=== PATIENT | male | born 1985 | race Caucasian/White ===

== ENCOUNTER 2017-10-28 13:35 | Emergency (ER) | payer SELFPAY ==
[~2017-10-28 13:35] MED LIST: BUPR1FIL7 PO; CEPH500C24 PO; CLON-327 PO; HYDR-4309 PO; LOR5/325 PO; SERT-181 PO
[2017-10-28] MEDS ORDERED: ASPI-1471 PO (13:51)
--- NOTE | 2017-10-28 13:57 | ER Report ---
History and Physical Time Seen By MD: 13:42 Hx. of Stated Complaint: PAIN IN CHEST BEEN GOING ON "FOR A WHILE", SOB HPI/ROS Chief concern: chest pain HPI: 32 year old male presents with concern of chest pain since 10AM. Reports pain radiates to left arm. States his heart is "beating hard", and is experiencing dizziness and shortness of breath. States he took 0.3 mg of clonidine, which he takes for hypertension, and his symptoms subsided somewhat. Reports chronic headaches. States he has been under increased stress due to his being in the NICU since . has been home for one month. Reports taking Zoloft for anxiety. Review of System General: Reports "clammy" hands and dizziness. Respiratory: Reports shortness of breath. CV: Reports chest pain radiating to left arm since 10AM. GI: Denies nausea, vomiting, abdominal pain. Allergies: Coded Allergies: No Known Drug Allergies (Unverified , 07/21/16) Home Meds Active Scripts Hydroxyzine Pamoate (VISTARIL) 25 Mg Capsule, 25 MG PO Q6H for Anxiety for 30 Days, #30 CAPSULE Prov:DERRICK ALBERT MATHEMATICAL STATISTICIAN 10/28/17 Reported Medications Aspirin (ASPIR 81) 81 Mg Tablet.dr, 81 MG PO QDAY, TAB 10/28/17 Clonidine Hcl (CLONIDINE HCL) 0.1 Mg Tablet, 0.5 TAB PO BID, TAB 04/13/17 Buprenorphine Hcl/Naloxone Hcl (SUBOXONE 8 MG-2 MG SL FILM) 1 Each Film, 1 FILM PO BID, #30 08/03/15 Discontinued Scripts Sertraline Hcl (SERTRALINE HCL) 100 Mg Tablet, 0.5-1 TAB PO QDAY, #30 TAB 1 Refill 0.5 tab daily x 7 days then increase to one tab daily thereafter Prov:DAGOBERTO RODRIGUEZ APRN MATHEMATICAL STATISTICIAN-C 04/13/17 Past Medical/Surgical History Reports history of anxiety, hyperthyroidism Reports history of IV drug use up until 3 years ago. Reviewed Nurses Notes: Yes Old Medical Records Reviewed: No Hx Smoking: Yes Smoking Status: Current: Every Day Smoker Exposure to Second Hand Smoke?: Yes Hx Substance Use Disorder: Yes (iv drug use history ) Hx Alcohol Use: No Family History of: HTN, Diabetes, Cardiac, DVT/PE Constitutional Vital Sign - Last 24 Hours 10/28/17 10/28/17 10/28/17 10/28/17 13:40 13:41 13:50 14:05 Temp 98.1 Pulse 108 100 87 Resp 16 16 14 B/P (MAP) 156/103 156/103 (120) Pulse Ox 97 95 96 O2 Delivery Room Air 10/28/17 10/28/17 10/28/17 10/28/17 14:20 14:35 14:42 14:50 Pulse 87 75 79 Resp 7 13 13 B/P (MAP) ???/??? (1665) Pulse Ox 95 95 92 10/28/17 10/28/17 10/28/17 10/28/17 15:05 15:20 15:25 15:40 Pulse 82 ? Resp 7 Pulse Ox 92 10/28/17 10/28/17 10/28/17 10/28/17 15:55 16:10 16:25 16:27 Pulse ? B/P (MAP) 105/65 (78) 10/28/17 10/28/17 10/28/17 16:40 16:55 17:10 Pulse 54 54 ??? Pulse Ox 91 96 Physical Exam Physical Exam General: Alert, articulate, answering questions with appropriate affect. HEENT: TMs pearly salvador and intact, no erythema to canal. No lymphadenopathy. Respiratory: Clear to auscultation bilaterally. Normal respiratory effort. CV: Regular rate and rhythm. GI: Normoactive bowel sounds all quadrants. No masses or tenderness to palpation. Scattered tympany/dullness to percussion. After obtaining a thorough HPI, ROS, and physical exam, the following differentials were considered but not limited to: WA, PE, uncontrolled hypertension, anxiety. Medical Decision Making Data Points Result Diagram: 10/28/17 1603 10/28/17 1603 Laboratory Hematology Test 10/28/17 16:03 Red Blood Count 5.09 M/uL (4.00-5.60) Mean Corpuscular Volume 88.1 fL (80.0-96.0) Mean Corpuscular Hemoglobin 31.3 pg (26.0-33.0) Mean Corpuscular Hemoglobin Concent 35.5 g/dL (32.0-36.0) Red Cell Distribution Width 12.2 % (11.5-14.5) Mean Platelet Volume 9.1 fL (7.2-11.1) Neutrophils (%) (Auto) 64.5 % (39.4-72.5) Lymphocytes (%) (Auto) 29.0 % (17.6-49.6) Monocytes (%) (Auto) 4.2 % (4.1-12.4) Eosinophils (%) (Auto) 1.4 % (0.4-6.7) Basophils (%) (Auto) 0.9 % (0.3-1.4) Nucleated RBC Relative Count (auto) 0.0 /100WBC Neutrophils # (Auto) 5.0 K/uL (2.0-7.4) Lymphocytes # (Auto) 2.3 K/uL (1.3-3.6) Monocytes # (Auto) 0.3 K/uL (0.3-1.0) Eosinophils # (Auto) 0.1 K/uL (0.0-0.5) Basophils # (Auto) 0.1 K/uL (0.0-0.1) Nucleated RBC Absolute Count (auto) 0.00 K/uL Sodium Level 140 mmol/L (137-145) Potassium Level 4.3 mmol/L (3.5-5.0) Chloride Level 102 mmol/L (98-107) Carbon Dioxide Level 26 mmol/L (22-30) Blood Urea Nitrogen 15 mg/dl (9-21) Creatinine 1.00 mg/dl (0.66-1.25) Glomerular Filtration Rate Calc > 60.0 Random Glucose 94 mg/dl (75-110) Calcium Level 9.6 mg/dl (8.4-10.2) Total Bilirubin 0.4 mg/dl (0.2-1.3) Aspartate Amino Transf (AST/SGOT) 19 U/L (0-35) Alanine Aminotransferase (ALT/SGPT) 31 U/L (0-56) Alkaline Phosphatase 72 U/L (0-126) Troponin I < 0.012 ng/ml Total Protein 7.4 gm/dl (6.3-8.2) Albumin 4.1 g/dl (3.5-5.0) Chemistry Test 10/28/17 16:03 White Blood Count 7.8 k/uL (4.5-11.0) Red Blood Count 5.09 M/uL (4.00-5.60) Hemoglobin 15.9 g/dL (14.0-18.0) Hematocrit 44.9 % (42.0-52.0) Mean Corpuscular Volume 88.1 fL (80.0-96.0) Mean Corpuscular Hemoglobin 31.3 pg (26.0-33.0) Mean Corpuscular Hemoglobin Concent 35.5 g/dL (32.0-36.0) Red Cell Distribution Width 12.2 % (11.5-14.5) Platelet Count 161 K/uL (150-450) Mean Platelet Volume 9.1 fL (7.2-11.1) Neutrophils (%) (Auto) 64.5 % (39.4-72.5) Lymphocytes (%) (Auto) 29.0 % (17.6-49.6) Monocytes (%) (Auto) 4.2 % (4.1-12.4) Eosinophils (%) (Auto) 1.4 % (0.4-6.7) Basophils (%) (Auto) 0.9 % (0.3-1.4) Nucleated RBC Relative Count (auto) 0.0 /100WBC Neutrophils # (Auto) 5.0 K/uL (2.0-7.4) Lymphocytes # (Auto) 2.3 K/uL (1.3-3.6) Monocytes # (Auto) 0.3 K/uL (0.3-1.0) Eosinophils # (Auto) 0.1 K/uL (0.0-0.5) Basophils # (Auto) 0.1 K/uL (0.0-0.1) Nucleated RBC Absolute Count (auto) 0.00 K/uL Glomerular Filtration Rate Calc > 60.0 Calcium Level 9.6 mg/dl (8.4-10.2) Total Bilirubin 0.4 mg/dl (0.2-1.3) Aspartate Amino Transf (AST/SGOT) 19 U/L (0-35) Alanine Aminotransferase (ALT/SGPT) 31 U/L (0-56) Alkaline Phosphatase 72 U/L (0-126) Troponin I < 0.012 ng/ml Total Protein 7.4 gm/dl (6.3-8.2) Albumin 4.1 g/dl (3.5-5.0) EKG/Imaging EKG Interpretation 12 lead EKG: Rhythm: normal sinus rhythm with a ventricular rate of 94 bpm Dike: normal QRS: normal ST segments: normal Imaging EXAMINATION: Chest 2 Views HISTORY: Chest pain. COMPARISON: None. FINDINGS: The lungs are clear. No focal consolidation or pleural fluid. No pneumothorax. Normal cardiomediastinal silhouette, with normal heart size and pulmonary vascularity. Visualized osseous structures are unremarkable. IMPRESSION: Negative chest. Report Dictated By: Alhaji Mclaughlin MD at 10/28/2017 3:25 PM Report E-Signed By: Alhaji Mclaughlin MD at 10/28/2017 3:26 PM ED Course/Re-evaluation ED Course Patient admitted to exam room. Thorough HPI and ROS obtained. Physical exam revealed lungs clear to auscultation bilaterally with normal respiratory effort. Regular heart rate and rhythm. Normoactive bowel sounds all quadrants. No masses or tenderness to palpation. Scattered tympany/dullness to percussion. After obtaining a thorough HPI, ROS, and physical exam, the following differentials were considered but not limited to: WA, PE, uncontrolled hypertension, anxiety. The following tests were completed: EKG, CMP, CBC, troponin, chest x-ray. 324 mg of aspirin adminstered to patient. EKG showed normal sinus rhythm. CBC showed no evidence of infection or hemodynamic instability. CMP showed no organ dysfunction or electrolyte imbalance. Troponin was negative. Chest X-ray FINDINGS: The lungs are clear. No focal consolidation or pleural fluid. No pneumothorax. Normal cardiomediastinal silhouette, with normal heart size and pulmonary vascularity. Visualized osseous structures are unremarkable. IMPRESSION: Negative chest. Findings were discussed with patient. Prescribed hydroxyzine for PRN relief of anxiety episodes. Recommended patient follow up with primary care provider. Return to ED if symptoms worsen. Patient verbalized understanding and agreed to plan. Decision to Disposition Date: Oct 28, 2017 Decision to Disposition Time: 17:12 Depart Departure Latest Vital Signs Vital Signs Date Time Temp Pulse Resp B/P (MAP) Pulse Ox O2 Delivery O2 Flow Rate FiO2 10/28/17 17:10 ??? 10/28/17 16:55 96 10/28/17 16:27 105/65 (78) 10/28/17 15:05 7 10/28/17 13:40 98.1 Room Air Impression: Primary Impression: Chest pain Additional Impression: Anxiety Condition: Improved Disposition: HOME OR SELF-CARE Referrals: DAGOBERTO RODRIGUEZ APRN-C (PCP) New Scripts Hydroxyzine Pamoate (VISTARIL) 25 Mg Capsule 25 MG PO Q6H for Anxiety for 30 Days, #30 CAPSULE Prov: DERRICK ALBERT 10/28/17 Patient Instructions: Anxiety (ED) Additional Instructions: Take hydroxyzine as needed for anxiety, up to four times a day. Follow up with primary care provider next week. Return to ED if symptoms worsen. Problem Qualifiers Primary Impression: Chest pain Chest pain type: other chest pain Qualified Codes: R07.89 - Other chest pain DERRICK ALBERT Oct 28, 2017 13:57
[2017-10-28] MEDS ORDERED: ASPIRIN 81 MG CHEW PO ONE (14:10)
--- NOTE | 2017-10-28 15:29 | EKG ---
FACILITY: [facility] - [place] PATIENT NAME: BALDEV INGRAM : [id number] MR: [id number] V: [id number] EXAM DATE: ORDERING PHYSICIAN: DERRICK ALBERT TECHNOLOGIST: ABDULAZIZ Test Reason : SOB Blood Pressure : / mmHG Vent. Rate : 094 BPM Atrial Rate : 094 BPM P-R Int : 154 ms QRS Dur : 096 ms QT Int : 344 ms P-R-T Axes : 078 075 046 degrees QTc Int : 430 ms Normal sinus rhythm Normal ECG No previous ECGs available Confirmed by DAPHNIE BROTHERS ([id number]) on 10/28/2017 10:00:26 PM Referred By: BETY Confirmed By:DAPHNIE BROTHERS
--- NOTE | 2017-10-28 15:31 | RADIOLOGY IMAGING REPORT ---
FACILITY: [facility] PATIENT NAME: Art Brwon : 1985 MR: [id number] V: [id number] EXAM DATE: ORDERING PHYSICIAN: DERRICK ALBERT TECHNOLOGIST: Location: [facility] [place] Patient: Art Brown : 1985 Visit/Account:[id number] Date of Sevice: 10/28/2017 EXAMINATION: Chest 2 Views HISTORY: Chest pain. COMPARISON: None. FINDINGS: The lungs are clear. No focal consolidation or pleural fluid. No pneumothorax. Normal cardiomedias tinal silhouette, with normal heart size and pulmonary vascularity. Visualized osseous structures ar e unremarkable. IMPRESSION: Negative chest. Report Dictated By: Alhaji Mclaughlin MD at 10/28/2017 3:25 PM Report E-Signed By: Alhaji Mclaughlin MD at 10/28/2017 3:26 PM [id number]
[2017-10-28 16:22] LABS: PLATELET COUNT, AUTOMATED 161 K/uL (150-450)
[2017-10-28 16:27] VITALS: BP 105/65
[2017-10-28] MEDS ORDERED: hydrOXYzine 25 MG TAB TH 2 TAB/BOTTLE PO ONE (17:05)
[2017-10-28] MEDS ORDERED: HYDR25CA83 PO (17:07)
== END 2017-10-28 17:21 | disposition home or self-care (01) ==
LOC: ER 14:03
DX: R07.89 Other chest pain (principal); F41.9 Anxiety disorder, unspecified
CPT/HCPCS: 71046; 82040; 82247; 82310; 82374; 82435; 82565; 82947; 84075; 84132; 84155; 84295; 84450; 84460; 84484; 84520; 85025; 93005; 99284

== ENCOUNTER 2018-03-27 14:01 | Emergency (ER) | payer SELFPAY ==
[~2018-03-27 14:01] MED LIST changes: +ASPI-1471 PO; +HYDR25CA83 PO
--- NOTE | 2018-03-27 14:10 | ER Report ---
History and Physical Time Seen By MD: 14:10 HPI/ROS CHIEF COMPLAINT: Varicose veins HISTORY OF PRESENT ILLNESS: This is a 33-year-old male who presents to the emergency department with his mother for concerns of varicose veins and a DVT. The patient states he has a history of IV drug use, has been sober and clean for 3 years. Over the last couple of years he's had increased left lower leg pain and swelling when standing on his feet for long periods of time. She also states he does have several varicose veins in his left lower extremity that have been giving him problems more recently. He also complains of left calf pain. Was in [place] this weekend, upon returning to [place] he has had increased calf pain. He also has 2 bruises to the left medial calf. Denies chest pain or shortness of breath. No nausea or vomiting. No fevers or chills. No headaches. REVIEW OF SYSTEMS: Constitutional: No fever, no chills. Eyes: No discharge. ENT: No sore throat. Cardiovascular: No chest pain, no palpitations. Respiratory: No cough, no shortness of breath. Gastrointestinal: No abdominal pain, no vomiting. Genitourinary: No hematuria. Musculoskeletal: As above. Skin: As above. Neurological: No headache. Allergies: Coded Allergies: No Known Drug Allergies (Unverified , 07/21/16) Home Meds Active Scripts Hydroxyzine Pamoate (VISTARIL) 25 Mg Capsule, 25 MG PO Q6H for Anxiety for 30 Days, #30 CAPSULE Prov:DERRICK ALBERT MECHANICAL ASSEMBLY 10/28/17 Reported Medications Aspirin (ASPIR 81) 81 Mg Tablet.dr, 81 MG PO QDAY, TAB 10/28/17 Clonidine Hcl (CLONIDINE HCL) 0.1 Mg Tablet, 0.5 TAB PO BID, TAB 04/13/17 Buprenorphine Hcl/Naloxone Hcl (SUBOXONE 8 MG-2 MG SL FILM) 1 Each Film, 1 FILM PO BID, #30 08/03/15 Past Medical/Surgical History The patient has a past medical and surgical history of hypertension, hyperparathyroidism, IV drug use, anxiety, depression. Reviewed Nurses Notes: Yes Hx Smoking: Yes Smoking Status: Current: Every Day Smoker Exposure to Second Hand Smoke?: Yes Hx Substance Use Disorder: Yes (iv drug use history ) Hx Alcohol Use: No Constitutional Vital Sign - Last 24 Hours 03/27/18 03/27/18 14:10 15:45 Temp 98.4 Pulse 78 78 Resp 20 20 B/P (MAP) 142/83 142/83 (102) Pulse Ox 98 98 O2 Delivery Room Air Room Air Physical Exam General Appearance: The patient is alert, has no immediate need for airway protection and no signs of toxicity. Eyes: Pupils equal and round no pallor or injection. ENT, Mouth: Mucous membranes are moist. Respiratory: There are no retractions, lungs are clear to auscultation. Cardiovascular: Regular rate and rhythm, no murmurs, clicks or rubs. Gastrointestinal: Abdomen is soft and non tender, no masses, bowel sounds normal. Neurological: Alert and oriented 4. Moving all of her release. Following all commands. No focal neuro deficits. Skin: 2 small bruises noted to the left proximal medial calf, one small bruise noted to the dorsum of the left foot. Musculoskeletal: Neck is supple non tender. Extremities are nontender, nonswollen and have full range of motion. DIFFERENTIAL DIAGNOSIS: After history and physical exam differential diagnosis was considered for deep vein thrombosis, superficial venous clot, varicosities and calf strain. Medical Decision Making EKG/Imaging Imaging Location: Patient: Art Brown : 1985 Visit/Account:[id number] [facility] VENOUS DOPP LOW LEFT EXTREMITY HISTORY: evaluate for DVT, hx varicosities and IV drug use Concern for deep venous thrombus. COMPARISON: None. FINDINGS: Grayscale, duplex and color Doppler interrogation of the left lower extremity deep veins from common femoral vein to proximal calf was completed. Compression was performed where it was possible. The right common femoral vein was evaluated using similar technique. Common femoral vein - Negative. Femoral vein - Negative. Deep femoral vein - Negative. Popliteal vein - Negative. Visualized deep calf veins - Negative. Popliteal fossa: Negative. There is no evidence of the soft tissue fluid collection. Contralateral (right) common femoral vein: Negative. IMPRESSION: 1. No evidence of acute deep venous thrombosis in the visualized veins of the left lower extremity. 2. No evidence of a soft tissue fluid collection. Report Dictated By: Dank Rain at 03/27/2018 3:31 PM Report E-Signed By: Dank Rain at 03/27/2018 3:33 PM WSN:[id number] ED Course/Re-evaluation ED Course The patient was admitted to room. A history of physical were obtained. Differential diagnoses were considered. An ultrasound of the left lower extremity was negative for DVT. I did review the official results with the patient and his mother. I did recommend following up with the [place] [facility] for long-term treatment of his varicose veins. The patient had no other questions or concerns at this time and was discharged home. Return to the ER for any other concerns or worsening symptoms. Decision to Disposition Date: Mar 27, 2018 Decision to Disposition Time: 15:44 Depart Departure Latest Vital Signs Vital Signs Date Time Temp Pulse Resp B/P (MAP) Pulse Ox O2 Delivery O2 Flow Rate FiO2 03/27/18 15:45 78 20 142/83 (102) 98 Room Air 03/27/18 14:10 98.4 Impression: Primary Impression: Left leg pain Additional Impression: Contusion Condition: Improved Disposition: HOME OR SELF-CARE Referrals: DAGOBERTO RODRIGUEZ APRNP-C (PCP) BELL LOPEZ MD, SANDRA K MD Additional Instructions: [facility] [place] is the closest center for vascular treatment of varicose veins, . Your ultra sound was negative for a DVT. I would recommend following up with your primary care provider in the next 2 weeks for reevaluation and a blood pressure discussion. Drink plenty of water. Get plenty of rest. Return to the ED for any other concerns or worsening symptoms. Problem Qualifiers Additional Impression: Contusion Encounter type: initial encounter Contusion area: lower leg Laterality: left Qualified Codes: S80.12XA - Contusion of left lower leg, initial encounter NALLELY QUEVEDOP-VIKKI Mar 27, 2018 14:10
--- NOTE | 2018-03-27 15:38 | RADIOLOGY IMAGING REPORT ---
FACILITY: [facility] PATIENT NAME: Art Brown : 1985 MR: [id number] V: [id number] EXAM DATE: ORDERING PHYSICIAN: NALLELY QUEVEDO TECHNOLOGIST: Location: [facility] - [place] Patient: Art Brown : 1985 Visit/Account:[id number] Date of Sevice: 03/27/2018 VENOUS DOPP LOW LEFT EXTREMITY HISTORY: evaluate for DVT, hx varicosities and IV drug use Concern for deep venous thrombus. COMPARISON: None. FINDINGS: Grayscale, duplex and color Doppler interrogation of the left lower extremity deep veins from common femoral vein to proximal calf was completed. Compression was performed where it was possible. The rig ht common femoral vein was evaluated using similar technique. Common femoral vein - Negative. Femoral vein - Negative. Deep femoral vein - Negative. Popliteal vein - Negative. Visualized deep calf veins - Negative. Popliteal fossa: Negative. There is no evidence of the soft tissue fluid collection. Contralateral (right) common femoral vein: Negative. IMPRESSION: 1. No evidence of acute deep venous thrombosis in the visualized veins of the left lower extremity. 2. No evidence of a soft tissue fluid collection. Report Dictated By: Dank Rain at 03/27/2018 3:31 PM Report E-Signed By: Dank Rain at 03/27/2018 3:33 PM WSN:[id number]
[2018-03-27 15:45] VITALS: BP 142/83
== END 2018-03-27 15:47 | disposition home or self-care (01) ==
LOC: ER 14:16
DX: S80.12XA Contusion of left lower leg, initial encounter (principal)
CPT/HCPCS: 99284

== ENCOUNTER → 2018-04-29 | Outpatient (CLI) | payer MEDICAID ==
[~2018-04-29] MED LIST changes: +ESCI20TA38 PO; +LISI5TAB25 PO
[2018-04-29 16:49] LABS: PLATELET COUNT, AUTOMATED 184 K/uL (150-450)
--- NOTE | 2018-04-29 17:47 | EKG ---
[place] [facility] [place] NAME: BALDEV INGRAM : [id number] MR: [id number] V: [id number] EXAM DATE: ORDERING PHYSICIAN: ALEX NEGRO TECHNOLOGIST: YADIRA Merchant RN Test Reason : HEART PALPITATIONS Blood Pressure : / mmHG Vent. Rate : 048 BPM Atrial Rate : 048 BPM P-R Int : 146 ms QRS Dur : 094 ms QT Int : 432 ms P-R-T Axes : 038 076 040 degrees QTc Int : 385 ms Sinus bradycardia Otherwise normal ECG No previous ECGs available Confirmed by DAPHNIE BROTHERS ([id number]) on 04/30/2018 7:38:21 AM Referred By: DR. NEGRO Confirmed By:DAPHNIE BROTHERS
== END ==
LOC: LAB 15:31
PROVIDERS: ATTEND Nurse Practitioner Primary Care
DX: R00.1 Bradycardia, unspecified (principal); I10 Essential (primary) hypertension; F41.9 Anxiety disorder, unspecified; M79.605 Pain in left leg
CPT/HCPCS: 36415; 82040; 82247; 82310; 82374; 82435; 82565; 82947; 84075; 84132; 84155; 84295; 84439; 84443; 84450; 84460; 84480; 84520; 85025; 85379

== ENCOUNTER 2018-08-13 19:52 | Emergency (ER) | payer MEDICAID ==
[~2018-08-13 19:52] MED LIST changes: +HYDR-4228 PO; -HYDR-4309 PO; +HYDR-653 PO
--- NOTE | 2018-08-13 20:02 | ER Report ---
History and Physical Time Seen By MD: 20:01 [facility] Time Seen By MD: 21:09 (GUERLINE ARCINIEGA DO) HPI/ROS CHIEF COMPLAINT: Multiple complaints HISTORY OF PRESENT ILLNESS: This is a 33-year-old male who presents to the emergency department with multiple complaints. Patient states that in the last 3-6 months he has had increased headaches, increased dyspnea, intermittent chest discomfort, states that he has been an increase in his symptoms since his daughter about 5 months ago. Patient states that he is also concerned that his blood pressure has been high, he seen his primary care provider for this intermittently, he also states that he is concerned that his heart rate is low when he sitting down, then when he stands up it does increase. As I am talking to the patient he is tearful. States he feels like he has veins that are bulging out everywhere and is concerned that his bodies falling apart, he also states that he has frequent hemorrhoids and vessels in his testicles that come and go and cause discomfort. He denies fever, visual changes other than slight d izziness occasionally, no rashes. No sore throats. Patient states that his vessels are "shot" as he is an ex heroin addict. Patient denies suicidal or homicidal ideations. He is accompanied by 2 kids and his mother. REVIEW OF SYSTEMS: Constitutional: No fever, no chills. Eyes: No discharge. ENT: No sore throat. Cardiovascular: As above. Respiratory: As above. Gastrointestinal: No abdominal pain, no vomiting. Genitourinary: As above. Musculoskeletal: No back pain. Skin: No rashes. Neurological: As above. [facility] HPI/ROS Please see the other providers note (GUERLINE ARCINIEGA DO) Allergies: Coded Allergies: No Known Drug Allergies (Unverified , 08/13/18) Home Meds Active Scripts Lisinopril (LISINOPRIL) 5 Mg Tablet, 1 TAB PO DAILY for 30 Days, #30 TAB 0 Refills LAST REFILL NEEDS PCP Prov:ALEX NEGRO DNP, PAYABLE PROCESSOR-BC 08/09/18 Escitalopram Oxalate (LEXAPRO) 20 Mg Tablet, 0.5-1 TAB PO QDAY for 90 Days, #90 TAB 0 Refills Take 2 tablet daily x4 days, then increase to 1 full tablet daily. Prov:ALEX NEGRO DNP, PAYABLE PROCESSOR-BC 04/29/18 Reported Medications Diltiazem Hcl (DILT-XR) 180 Mg Cap.er.deg, 1 CAP PO BID 08/13/18 Aspirin (ASPIR 81) 81 Mg Tablet.dr, 81 MG PO QDAY, TAB 10/28/17 Clonidine Hcl (CLONIDINE HCL) 0.1 Mg Tablet, 0.5 TAB PO BID, TAB 04/13/17 Buprenorphine Hcl/Naloxone Hcl (SUBOXONE 8 MG-2 MG SL FILM) 1 Each Film, 1 FILM PO BID, #30 08/03/15 Discontinued Scripts Hydroxyzine Hcl (HYDROXYZINE HCL) 50 Mg Tablet, 1 TAB PO Q6H PRN for anxiety, #30 TAB 0 Refills Take 1-2 tablets every 6 hours as needed for anxiety Prov:ALEX NEGRO DNP, PAYABLE PROCESSOR-BC 05/02/18 Past Medical/Surgical History The patient has a past medical and surgical history of hyper-thyroidism, hypertension, OCD, depression, anxiety, IV drug use, smoking. (NALLELY QUEVEDO [facility]-) Reviewed Nurses Notes: Yes (NALLELY [facility]) Hx Smoking: Yes Smoking Status: Current: Every Day Smoker Exposure to Second Hand Smoke?: Yes Hx Substance Use Disorder: Yes (iv drug use history ) Hx Alcohol Use: No (NALLELY [facility]EDO [facility]-) Constitutional Vital Sign - Last 24 Hours 08/13/18 08/13/18 08/13/18 08/13/18 19:55 20:00 20:07 20:22 Temp 98.5 Pulse 76 90 90 Resp 10 8 12 B/P (MAP) 139/92 141/88 (105) Pulse Ox 94 93 96 O2 Delivery Room Air 08/13/18 08/13/18 08/13/18 08/13/18 20:30 20:37 20:52 21:07 Pulse 79 71 82 Resp 7 8 10 B/P (MAP) 148/88 (108) Pulse Ox 93 94 08/13/18 08/13/18 08/13/18 08/13/18 21:22 21:30 21:35 21:50 Pulse 66 ??? 72 Resp 16 8 13 B/P (MAP) 130/74 (92) Pulse Ox 90 92 08/13/18 08/13/18 08/13/18 08/13/18 22:00 22:05 22:20 22:25 Pulse 73 69 Resp 20 12 B/P (MAP) 141/108 (119) 135/75 (95) Pulse Ox 92 91 08/13/18 08/13/18 08/13/18 08/13/18 22:28 22:29 22:32 22:35 Pulse 64 62 73 96 Resp 11 B/P (MAP) 128/84 (99) 106/93 (97) 135/75 (95) 128/84 (99) 106/93 (97) Pulse Ox 93 91 O2 Delivery Room Air (GUERLINE ARCINIEGA DO) Physical Exam General Appearance: The patient is alert, has no immediate need for airway protection and no signs of toxicity, tearful. Eyes: Pupils equal and round no pallor or injection. ENT, Mouth: Mucous membranes are moist. No petechiae. Respiratory: There are no retractions, lungs are clear to auscultation. Cardiovascular: Regular rate and rhythm, very faint systolic murmur, no clicks or rubs. Gastrointestinal: Abdomen is soft and non tender, no masses, bowel sounds normal. Neurological: Alert and oriented 4. Moving all extremities. Following all commands. No focal neuro deficits. Skin: Warm and dry, no rashes. Musculoskeletal: Neck is supple non tender. Extremities are nontender, nonswollen and have full range of motion. DIFFERENTIAL DIAGNOSIS: After history and physical exam differential diagnosis was considered for shortness of breath including but not limited to pulmonary infectious process, COPD, asthma, pulmonary embolus and congestive heart failure.chest pain including but not limited to myocardial ischemia, pericarditis pulmonary embolus, chest wall pain, pleural inflammation and pulmonary infectious causes. (NALLELY QUEVEDO-) Physical Exam Please see another provider's note (GUERLINE ARCINIEGA DO) Medical Decision Making Data Points Result Diagram: 08/13/18211908/13/182119 Laboratory Hematology Test 08/13/18 21:20 Red Blood Count 5.03 M/uL (4.00-5.60) Mean Corpuscular Volume 91.1 fL (80.0-96.0) Mean Corpuscular Hemoglobin 30.9 pg (26.0-33.0) Mean Corpuscular Hemoglobin Concent 33.9 g/dL (32.0-36.0) Red Cell Distribution Width 12.1 % (11.5-14.5) Mean Platelet Volume 8.8 fL (7.2-11.1) Neutrophils (%) (Auto) 45.2 % (39.4-72.5) Lymphocytes (%) (Auto) 41.3 % (17.6-49.6) Monocytes (%) (Auto) 6.8 % (4.1-12.4) Eosinophils (%) (Auto) 4.4 % (0.4-6.7) Basophils (%) (Auto) 2.3 % (0.3-1.4) Nucleated RBC Relative Count (auto) 0.1 /100WBC Neutrophils # (Auto) 3.1 K/uL (2.0-7.4) Lymphocytes # (Auto) 2.8 K/uL (1.3-3.6) Monocytes # (Auto) 0.5 K/uL (0.3-1.0) Eosinophils # (Auto) 0.3 K/uL (0.0-0.5) Basophils # (Auto) 0.2 K/uL (0.0-0.1) Nucleated RBC Absolute Count (auto) 0.01 K/uL Sodium Level 141 mmol/L (137-145) Potassium Level 4.2 mmol/L (3.5-5.0) Chloride Level 111 mmol/L (98-107) Carbon Dioxide Level 26 mmol/L (22-30) Blood Urea Nitrogen 16 mg/dl (9-21) Creatinine 0.80 mg/dl (0.66-1.25) Glomerular Filtration Rate Calc > 60.0 Random Glucose 83 mg/dl (75-110) Calcium Level 9.5 mg/dl (8.4-10.2) Total Bilirubin 0.2 mg/dl (0.2-1.3) Aspartate Amino Transf (AST/SGOT) 15 U/L (0-35) Alanine Aminotransferase (ALT/SGPT) 19 U/L (0-56) Alkaline Phosphatase 78 U/L (0-126) Troponin I < 0.012 ng/ml Total Protein 7.3 g/dl (6.3-8.2) Albumin 4.3 g/dl (3.5-5.0) Chemistry Test 08/13/18 21:20 White Blood Count 6.8 k/uL (4.5-11.0) Red Blood Count 5.03 M/uL (4.00-5.60) Hemoglobin 15.6 g/dL (14.0-18.0) Hematocrit 45.9 % (42.0-52.0) Mean Corpuscular Volume 91.1 fL (80.0-96.0) Mean Corpuscular Hemoglobin 30.9 pg (26.0-33.0) Mean Corpuscular Hemoglobin Concent 33.9 g/dL (32.0-36.0) Red Cell Distribution Width 12.1 % (11.5-14.5) Platelet Count 181 K/uL (150-450) Mean Platelet Volume 8.8 fL (7.2-11.1) Neutrophils (%) (Auto) 45.2 % (39.4-72.5) Lymphocytes (%) (Auto) 41.3 % (17.6-49.6) Monocytes (%) (Auto) 6.8 % (4.1-12.4) Eosinophils (%) (Auto) 4.4 % (0.4-6.7) Basophils (%) (Auto) 2.3 % (0.3-1.4) Nucleated RBC Relative Count (auto) 0.1 /100WBC Neutrophils # (Auto) 3.1 K/uL (2.0-7.4) Lymphocytes # (Auto) 2.8 K/uL (1.3-3.6) Monocytes # (Auto) 0.5 K/uL (0.3-1.0) Eosinophils # (Auto) 0.3 K/uL (0.0-0.5) Basophils # (Auto) 0.2 K/uL (0.0-0.1) Nucleated RBC Absolute Count (auto) 0.01 K/uL Glomerular Filtration Rate Calc > 60.0 Calcium Level 9.5 mg/dl (8.4-10.2) Total Bilirubin 0.2 mg/dl (0.2-1.3) Aspartate Amino Transf (AST/SGOT) 15 U/L (0-35) Alanine Aminotransferase (ALT/SGPT) 19 U/L (0-56) Alkaline Phosphatase 78 U/L (0-126) Troponin I < 0.012 ng/ml Total Protein 7.3 g/dl (6.3-8.2) Albumin 4.3 g/dl (3.5-5.0) (GUERLINE ARCINIEGA [facility]) EKG/Imaging EKG Interpretation 12 lead EKG: Time of EKG at 2028. Rhythm: Normal sinus rhythm, ventricular rate 71 bpm. [place]: normal QRS: normal ST segments: Inverted T-wave in lead 3, Q waves noted in lead 3, V2, V3 and V4, flattened T waves in V2, V3. No reciprocal changes identified on the EKG. This is different from the 04/29/2018 EKG. (NALLELY QUEVEDO) ED Course/Re-evaluation Clinical Indication for ER IV: IV Access ED Course The patient was admitted to a room. A history and physical were obtained. Differential diagnoses were considered. An IV was started. A CBC, CMP were obtained. A 1 L normal saline bolus was given. An EKG showing normal sinus rhythm, with q waves in V2,V3,V4, but no acute findings, this is different than previous EKG's. Decision to Disposition Date: Aug 13, 2018 Decision to Disposition Time: 20:59 Turned Over The care of the patient was turned over to get here at [place]. HEATHER Plunkett I authorize my typed signature that I authenticated this report. (NALLELY QUEVEDO) Decision to Disposition Date: Aug 13, 2018 Decision to Disposition Time: 22:27 [facility] Depart Departure Latest Vital Signs Vital Signs Date Time Temp Pulse Resp B/P (MAP) Pulse Ox O2 Delivery O2 Flow Rate FiO2 08/13/18 22:35 62 11 91 08/13/18 22:32 135/75 (95) Room Air 128/84 (99) 106/93 (97) 08/13/18 19:55 98.5 (GUERLINE ARCINIEGA [facility]) Core Temperature (Celsius): 36.89 (NALLELY QUEVEDO) Impression: Primary Impression: Chest pain Condition: Improved Disposition: HOME OR SELF-CARE Referrals: DAGOBERTO RODRIGUEZ APRN PAYABLE PROCESSOR-C (PCP) Patient Instructions: Chest Pain (DC) Additional Instructions: Please follow-up with your primary care provider tomorrow. Please return immediately if you develop chest pain, shortness breath, fevers, chills, nausea, vomiting. NALLELY QUEVEDO PAYABLE PROCESSOR-BC Aug 13, 2018 20:02 GUERLINE ARCINIEGA DO Aug 13, 2018 21:10
[2018-08-13] MEDS ORDERED: DILT-86 PO (20:10)
[2018-08-13] MEDS ORDERED: NS(*) 0.9% 1000 ML BAG 1,000 ML IV ONE (20:25)
--- NOTE | 2018-08-13 20:38 | EKG ---
FACILITY: [facility] - [place] PATIENT NAME: BALDEV INGRAM : [id number] MR: [id number] V: [id number] EXAM DATE: ORDERING PHYSICIAN: NALLELY QUEVEDO TECHNOLOGIST: THIAGO Avitia Reason : DYSPNEA Blood Pressure : / mmHG Vent. Rate : 071 BPM Atrial Rate : 071 BPM P-R Int : 174 ms QRS Dur : 086 ms QT Int : 372 ms P-R-T Axes : -14 -20 011 degrees QTc Int : 404 ms Sinus rhythm Possible left atrial enlargement Left axis Possible previous inferior infarct Poor R wave progression anteriroly Abnormal ECG Confirmed by FRANKLYN MILLER ([id number]) on 08/13/2018 10:13:13 PM Referred By: Confirmed By:FRANKLYN MILLER
[2018-08-13 21:29] LABS: PLATELET COUNT, AUTOMATED 181 K/uL (150-450)
--- NOTE | 2018-08-13 21:55 | RADIOLOGY IMAGING REPORT ---
FACILITY: [facility] PATIENT NAME: Art Brown : 1985 MR: [id number] V: [id number] EXAM DATE: ORDERING PHYSICIAN: NALLELY QUEVEDO TECHNOLOGIST: [place] [facility] [place] : 1985 Visit/Account:[id number] Date of Sevice: 08/13/2018 2 VIEWS CHEST INDICATION: Chest pain. COMPARISON: 10/28/2017. FINDINGS: Cardiomediastinal silhouette and pulmonary vessels within normal limits. There is no focal infiltrate or lobar consolidation. There is no pneumothorax or pleural effusion. No nodule. Upper abdomen is unremarkable. No acute bony abnormality. IMPRESSION: 1. No acute cardiopulmonary process. Report Dictated By: London Cruz at 08/13/2018 9:50 PM Report E-Signed By: London Cruz at 08/13/2018 9:52 PM WSN:[id number]
[2018-08-13 22:32] VITALS: BP 106/93
== END 2018-08-13 22:49 | disposition home or self-care (01) ==
LOC: ER 20:11
DX: R07.9 Chest pain, unspecified (principal)
CPT/HCPCS: 36415; 71046; 82040; 82247; 82310; 82374; 82435; 82565; 82947; 84075; 84132; 84155; 84295; 84450; 84460; 84484; 84520; 85025; 93005; 99284

== ENCOUNTER → 2018-08-15 | Outpatient (CLI) | payer MEDICAID ==
[~2018-08-15] MED LIST changes: +DILT-86 PO; +FLUO40CA67 PO
--- NOTE | 2018-08-19 11:38 | RT HOLTER TEST ---
FACILITY: [facility] - [place] PATIENT NAME: BALDEV INGRAM : [id number] MR: [id number] V: [id number] EXAM DATE: ORDERING PHYSICIAN: DAGOBERTO RODRIGUEZ TECHNOLOGIST: CASSIE Hook-up date: 2018-08-15 15:50:00 Duration: 43:07:00 Test Indications: R42 Medications: NO DIARY RETURNED [id number] QRS complexes 1 Ventricular ectopics which represent <1 % of total QRS comp. 40 Supraventricular ectopics which represent <1 % of total QRS comp. * Paced QRS complexes which represent % of total QRS comp. VENTRICULAR ECTOPY 1 Isolated 0 Bigeminal Cycles 0 Couplets 0 Runs 0 Beats in Runs * Beats LONGEST at * BPM at :: -- * Beats FASTEST at * BPM at :: -- SUPRAVENTRICULAR ECTOPY 17 Isolated 10 Couplets 1 Runs 3 Beats in Runs 3 Beats LONGEST at 70 BPM at 09:48:16 2018-08-17 3 Beats FASTEST at 70 BPM at 09:48:16 2018-08-17 HEART RATES 40 MIN at 06:37:57 2018-08-16 77 AVG 129 MAX at 08:41:00 2018-08-16 LONGEST RR 1.720 secs at 06:54:40 2018-08-16 S-T LEVELS Channel 1 -12.800 mm MIN at 15:50:00 2018-08-15 -12.800 mm MAX at 15:50:00 2018-08-15 Channel 2 -12.800 mm MIN at 15:50:00 2018-08-15 -12.800 mm MAX at 15:50:00 2018-08-15 Channel 3 -12.800 mm MIN at 15:50:00 2018-08-15 -12.800 mm MAX at 15:50:00 2018-08-15 Sinus rhythm Occasional Premature supraventricular complexes Confirmed by DAPHNIE BROTHERS ([id number]) on 08/19/2018 11:37:44 AM Referred By: Overread By: DAPHNIE BROTHERS
== END ==
LOC: LAB 13:52
PROVIDERS: ATTEND Nurse Practitioner Family
DX: I49.3 Ventricular premature depolarization (principal)
CPT/HCPCS: 36415; 84439; 84443; 84480; 93225; 93226

== ENCOUNTER → 2018-08-20 | Outpatient (CLI) | payer MEDICAID | LOC: US 01:06 | PROVIDERS: ATTEND Nurse Practitioner Family | DX: R42 Dizziness and giddiness (principal); R00.0 Tachycardia, unspecified; R07.9 Chest pain, unspecified | CPT/HCPCS: 93017; 93350 ==

== ENCOUNTER 2019-03-13 08:10 | Emergency (ER) | payer MEDICAID ==
[2019-03-13 08:14] VITALS: BP 119/88
--- NOTE | 2019-03-13 08:20 | ER Report ---
History and Physical Time Seen By MD: 08:15 Hx. of Stated Complaint: pt has had a sore throat for a few days. Now feels like it is closing HPI/ROS Sore throat and feeling fullness in his throat worsening for 2-3 days. Able to take PO. No fever. No meningismus or cough. No DAVEY or ear ear pain. No chest coni n. Remainder of the 14 system rev: Yes Allergies: Coded Allergies: No Known Drug Allergies (Unverified , 03/13/19) Home Meds Active Scripts Fluoxetine Hcl (FLUOXETINE HCL) 40 Mg Capsule, 1 CAP PO QDAY, #90 CAPSULE 1 Refill Prov:DAGOBERTO RODRIGUEZ APRN TREASURY AGENT-C 01/30/19 Reported Medications Diltiazem Hcl (DILT-XR) 180 Mg Cap.er.deg, 1 CAP PO BID 08/13/18 Clonidine Hcl (CLONIDINE HCL) 0.1 Mg Tablet, 0.5 TAB PO BID, TAB 04/13/17 Buprenorphine Hcl/Naloxone Hcl (SUBOXONE 8 MG-2 MG SL FILM) 1 Each Film, 1 FILM PO BID, #30 08/03/15 Discontinued Reported Medications Aspirin (ASPIR 81) 81 Mg Tablet.dr, 81 MG PO QDAY, TAB 10/28/17 Discontinued Scripts Lisinopril (LISINOPRIL) 5 Mg Tablet, 1 TAB PO DAILY for 30 Days, #30 TAB 0 Refills LAST REFILL NEEDS PCP Prov:ALEX NEGRO DNP, TREASURY AGENT-BC 08/09/18 Reviewed Nurses Notes: Yes Old Medical Records Reviewed: Yes Hx Smoking: Yes Smoking Status: Current: Every Day Smoker Exposure to Second Hand Smoke?: Yes Hx Substance Use Disorder: Yes (iv drug use history ) Hx Alcohol Use: No Constitutional Vital Sign - Last 24 Hours 03/13/19 08:14 Temp 98.2 Pulse 90 Resp 18 B/P (MAP) 119/88 Pulse Ox 94 O2 Delivery Room Air Physical Exam General Appearance: Alert, no distress. Eyes: Pupils equal and round no pallor or injection. ENT, Mouth: Erythema to the o/p, no exudate, no STEAK TENDERIZER MACHINE, no pain with tracheal rock, normal epiglottis, uvula is midline Nose: No bleeding. Mouth: Mucous membranes are moist. Musculoskeletal: Neck is supple non tender, no adenopathy. Skin: Warm and dry, no rashes. DIFFERENTIAL DIAGNOSIS: After history and physical exam differential diagnosis was considered for ED sore throat: Strep pharyngitis, viral pharyngitis, STEAK TENDERIZER MACHINE, RPA, epiglottitis, retained foreign body Medical Decision Making Data Points Laboratory Serology Test 03/13/19 08:28 Group A Streptococcus (PCR) Negative (NEGATIVE) ED Course/Re-evaluation ED Course No evidence of strep pharyngitis. Able to take PO. No RPA or STEAK TENDERIZER MACHINE. Given decadron and Toradol with relief. Will follow up with PCM. Decision to Disposition Date: Mar 13, 2019 Decision to Disposition Time: 09:53 Depart Departure Latest Vital Signs Vital Signs Date Time Temp Pulse Resp B/P (MAP) Pulse Ox O2 Delivery O2 Flow Rate FiO2 03/13/19 08:14 98.2 90 18 119/88 94 Room Air Core Temperature (Celsius): 36.89 Impression: Primary Impression: Viral pharyngitis Condition: Improved Disposition: HOME OR SELF-CARE Referrals: DAGOBERTO RODRIGUEZ APRN TREASURY AGENT-C (PCP) Patient Instructions: Pharyngitis (ED) ALANNA MENSAH MD Mar 13, 2019 08:20
[2019-03-13] MEDS ORDERED: KETOROLAC 60 MG/2 ML VIAL IM ONE (08:50)
[2019-03-13] MEDS ORDERED: DEXAMETHASONE 4 MG TAB PO ONE (08:50)
== END 2019-03-13 09:55 | disposition home or self-care (01) ==
LOC: ER 08:10
DX: J02.8 Acute pharyngitis due to other specified organisms (principal)
CPT/HCPCS: 87653; 96372; 99283; J1885; J8540